=== PATIENT | male | born 1985 ===

== ENCOUNTER 2024-12-08 23:21 | Emergency (ER) | payer OTHER ==
[~2024-12-08] VITALS: Ht 165.1 cm; Wt 68.0 kg
[2024-12-08] MEDS ORDERED: Naproxen 250 MG TAB PO ONE (23:30)
[2024-12-09] MEDS ORDERED: NAPR500 PO (00:25)
== END 2024-12-09 01:01 | disposition home or self-care (01) ==
LOC: ER 23:21
DX: S20.219A Contusion of unspecified front wall of thorax, initial encounter (principal); V43.63XA Car passenger injured in collision with pick-up truck in traffic accident, initial encounter
CPT/HCPCS: 71046; 99284-25; A9270